=== PATIENT | male | born 1985 | race African-American/Black ===

== ENCOUNTER 2021-12-25 18:36 | Emergency (ER) | payer MEDICAID, OTHER ==
[~2021-12-25] VITALS: Ht 182.9 cm; Wt 69.0 kg
[2021-12-25 19:07] VITALS: BP 125/76
[2021-12-25] MEDS ORDERED: IBUPROFEN 600MG TABLET PO STA (19:50)
== END 2021-12-25 20:00 | disposition left against medical advice (07) ==
LOC: ER 18:44
DX: M79.18 Myalgia, other site (principal)
CPT/HCPCS: 99281